=== PATIENT | male | born 1980 | race Caucasian/White ===

== ENCOUNTER 2017-02-22 08:55 | Emergency (ER) | payer OTHER ==
[~2017-02-22] VITALS: Ht 182.9 cm; Wt 56.7 kg
[~2017-02-22 08:55] MED LIST: AUGMENTIN 875-1 EACH PO; PERCOCET 5/3251 EACH PO
--- NOTE | 2017-02-22 09:26 | Emergency Room Report ---
See Addendum History of Present Illness Time Seen by MD Benz Presenting Problem in Triage Pt arrived:Walked Presenting Problem:PT C/O PAIN IN THE RIGHT EYE. 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 N Clinical Suspician of Infection? N Mental Status: 1 - Regular (Normal Baseline) Sepsis Risk:Low Sepsis Risk Have you (or family members/close friends) recently traveled outside the [place]? N If Yes, where/when: Have you had exposure to infectious disease within the past month? N TB? Other? Specify: Vision states she was grinding metal yesterday and that he believes he got a foreign body in his right eye he states he wasn't wearing goggles he was wearing his regular glasses. States his tetanus shot is less than 5 years ago and that he has some foreign body sensation in his right eye, no radiation moderate in severity. Comment per staffing and scheduling coordinatorCODIE chong to send to his office, they open at 10pm today per usual protocol here ALLERGIES Coded Allergies: NO KNOWN ALLERGIES (12/13/16) Home Medications Active Scripts Amoxicillin/Potassium Clav (Augmentin 875-125 Tablet) 1 EACH PO BID #10 TAB Prov: 12/13/16 History Medical History General CAD? No Angina: No [place]: No Hypertension? No Hyperlipidemia? No CHF? No DVT? No PE? No COPD? No Asthma? No Anemia? No GERD? No Gastric ulcers? No GI Bleed? No Hernia? No Thyroid Problems? No Hypothyroidism? No CVA? No Seizures? No Diabetes? No Renal Insuffiency? No End Stage Renal Disease? No UTI? No Stones? No BPH? No GB Disease: No Nephritic Syndrome? No Asplenia? No Hepatitis? No Sickle Cell Disease? No Arthritis? No Migraines? No Cataracts? No Glaucoma? No MRSA? No HIV? No TB? No Anxiety? No Depression? No Cancer? No More? No Immunization Hx DT/Tetanus 5-10 YRS Surgical Hx Previous Surgery?Y APPENDECTOMY Social History Smoking Hx Smoker: Current Every Day Smoker Tobacco: Yes Type Cigarettes Packs/day < 1 Pack Alcohol Alcohol: No Review of Systems All Other Systems Reviewed and Negative Physical Exam Vital Signs Vital Signs Date Time Temp Pulse Resp B/P Pulse O2 O2 Flow FiO2 Ox Delivery Rate 02/22 0858 97.9 93 18 155/95 100 General Appearance: Nontoxic Head: Normocephalic, without obvious abnormality, atraumatic. Eyes: Left conjunctiva/corneas clear Right eye has a metallic foreign body 1-2 mm overlying his RIGHT cornea and conjunctivitis there is no Peyman sign and there is no uptake with fluorescein staining ENT: Mucous membranes moist. Neck: No jugular venous distention. Extremities: no edema Musculoskeletal: No chest wall tenderness Skin: No rashes or lesions to exposed skin. Neurologic: Alert. No gross focal deficits Psychiatric: Normal affect (Vince Velez MD) General Appearance normal appearance Respiratory Status No: respiratory distress. Cardiovascular normal exam, no JVD Neurologic alert Medical Decision Making LABS/Meds/Orders Pt receiving controlled substance in ED? No Comment staff assure me there is no slit lamp here. call out to ophthamology Dr. Kaur will see patient in his office today first thing for FB removal Results/Orders Current Medication Orders Sig/Gaston Start time Last Medication Dose Route Stop Time Status Admin Fluorescein Sodium 1 EACH ONCE ONE 02/22 0930 DC OP 02/22 0931 Tetracaine HCl See Dose ONCE ONE 02/22 0930 DC Insts (1) OP 02/22 0931 Miscellaneous 0 .STK-MED ONE 02/22 0904 DC XX Dose Instructions: (1)Tetracaine HCl: DOSE = 1 - 2 DROPS Departure Departure Time of Disposition 1004 Disposition DC Home or Self Care(routine) Clinical Impression Primary Impression: Foreign body, eye Qualifiers: Encounter type: initial encounter Laterality: right Qualified Code: T15.91XA - Foreign body on external eye, part unspecified, right eye, initial encounter Condition STABLE Discharge Counseling Counseled pt/family regarding diagnosis, test results, follow up needs Comment YOU ARE TO PROCEED DIRECTLY TO DR KAUR OFFICE FOR REMOVAL OF FORIEGN BODY NOW, GO DIRECTLY TO HIS OFFICE, NURSES WILL GIVE YOU DIRECTIONS ED Critical Care Critical Care No at 1002
[2017-02-22 10:13] VITALS: BP 155/95
== END 2017-02-22 10:14 | disposition home or self-care (01) ==
LOC: ER 08:55
DX: T15.11XA Foreign body in conjunctival sac, right eye, initial encounter (principal); T15.01XA Foreign body in cornea, right eye, initial encounter